=== PATIENT | male | born 1985 | race Caucasian/White ===

== ENCOUNTER 2018-07-27 19:30 | Emergency (ER) | payer BC ==
[2018-07-27] MEDS ORDERED: Iopamidol 755 Mg/ML 100 ML Bottle IV ONE (21:23)
[2018-07-27] MEDS ORDERED: Diatrizoate Meglumine/Diatrizoate Sodium 37% 30 ML Bottle PO SCH (21:30)
[2018-07-27] MEDS ORDERED: Magnesium Citrate Solution 296 ML Bottle PO ONE (22:28)
--- NOTE | 2018-07-28 17:10 | EDM.PDOC ---
ED HPI GENERAL MEDICAL PROBLEM - General Chief Complaint: Abdominal Pain Stated Complaint: STOMACH PAIN Time Seen by Provider: 07/27/18 19:45 Source of Information: Reports: Patient - History of Present Illness INITIAL COMMENTS - FREE TEXT/NARRATIVE: pt c/o lower abd cramping since last night along with multiple small BMs that has bright blood, pt report nausea and one emesis today denies fever or chills or any other associated sx or concerns. ABDOMEN Pain Score (Numeric/FACES): 5 - Related Data Allergies Allergy/AdvReac Type Severity Reaction Status Date / Time Penicillins Allergy Severe Stomach Verified 07/27/18 19:42 Upset aspirin Allergy Nausea and Verified 07/27/18 19:42 Vomiting ERTHOMYCIN Allergy Stomach Uncoded 07/27/18 19:43 Upset Home Meds: Home Meds buPROPion HCl [Wellbutrin Xl] 300 mg PO DAILY 07/27/18 [History] Past Medical History - Past Health History Medical/Surgical History: Denies Medical/Surgical History Psychiatric History: Reports: Anxiety, Depression - Past Surgical History GI Surgical History: Reports: Appendectomy Social & Family History - Tobacco Use Smoking Status *Q: Former Smoker Used Tobacco, but Quit: Yes Month/Year Tobacco Last Used: 2018 - Caffeine Use Caffeine Use: Reports: None - Recreational Drug Use Recreational Drug Use: No - Living Situation & Occupation Living situation: Reports: with Significant Other Occupation: Employed ED ROS GENERAL - Review of Systems Review Of Systems: See Below Constitutional: Denies: Fever, Chills, Night Sweats HEENT: Reports: No Symptoms Respiratory: Reports: No Symptoms Cardiovascular: Reports: No Symptoms GI/Abdominal: Reports: Abdominal Pain, Anorexia, Bloody Stool, Constipation, Nausea : Reports: No Symptoms Musculoskeletal: Reports: No Symptoms Neurological: Reports: No Symptoms ED EXAM, GI/ABD - Physical Exam Exam: See Below Text/Narrative:: pt appear resting comfortably. Exam Limited By: No Limitations General Appearance: Alert Throat/Mouth: Normal Inspection, Normal Oropharynx Head: Atraumatic, Normocephalic Respiratory/Chest: No Respiratory Distress Cardiovascular: Normal Peripheral Pulses GI/Abdominal Exam: Normal Bowel Sounds, Soft, No Mass, Other (tender over lower abd no guarding. ) Rectal (Males) Exam: Bloody Stool, Heme + Stool. No: Black Stool, Hemorrhoids, Perirectal Abscess, Prostate Nodule, Rectal Fissure, Tenderness Back Exam: Normal Inspection Extremities: Normal Inspection Neurological: Alert, Oriented, CN II-XII Intact Psychiatric: Normal Affect Course - Vital Signs Text/Narrative:: labs/ Xray/ CT results were explained to pt. pt has rectal bleeding likely secondary to constipation, pt is discharge with instructions on constipation mng and f/u with PCP in 2 days for re-check. Last Recorded V/S: Last Vital Signs Temp 37.0 C 07/27/18 22:30 Pulse 78 07/27/18 22:30 Resp 16 07/27/18 22:30 BP 139/93 H 07/27/18 22:30 Pulse Ox 100 07/27/18 22:30 - Orders/Labs/Meds Orders: Active Orders 24 hr Category Date Time Status Abdomen 2V AP Flat Upright [CR] Stat Exams 07/27/18 20:18 Taken Abdomen Pelvis w Cont [CT] Stat Exams 07/27/18 21:13 Taken Labs: Laboratory Tests 07/27/18 07/27/18 07/27/18 Range/Units 20:30 20:30 21:35 WBC 15.8 H (4.5-12.0) X10-3/uL RBC 5.47 (4.30-5.75) x10(6)uL Hgb 16.8 (13.5-17.8) g/dL Hct 48.6 (30.0-51.3) % MCV 88.8 (80-96) fL MCH 30.8 (27.7-33.6) pg MCHC 34.7 (32.2-35.4) g/dL RDW 12.2 (11.5-15.5) % Plt Count 305 (125-369) X10(3)uL MPV 7.6 (7.4-10.4) fL Neut % (Auto) 79.1 (46-82) % Lymph % (Auto) 11.7 L (13-37) % [place] % (Auto) 6.6 (4-12) % Eos % (Auto) 1 (1.0-5.0) % Baso % (Auto) 2 (0-2) % Neut # (Auto) 12.6 H (1.6-8.3) # Lymph # (Auto) 1.8 (0.6-5.0) # [place] # (Auto) 1.0 (0.0-1.3) # Eos # (Auto) 0.1 (0.0-0.8) # Baso # (Auto) 0.3 H (0.0-0.2) # Sodium 140 (135-145) mmol/L Potassium 4.0 (3.5-5.3) mmol/L Chloride 99 L (100-110) mmol/L Carbon Dioxide 33 H (21-32) mmol/L BUN 14 (7-18) mg/dL Creatinine 1.3 (0.70-1.30) mg/dL Est Cr Clr Drug Dosing 78.19 mL/min Estimated GFR (MDRD) > 60 (>60) BUN/Creatinine Ratio 10.8 (9-20) Glucose 114 (80-116) mg/dL Calcium 10.0 (8.6-10.2) mg/dL Total Bilirubin 0.5 (0.1-1.3) mg/dL AST 21 (5-25) IU/L ALT 52 H (12-36) U/L Alkaline Phosphatase 142 H (56-112) IU/L Total Protein 8.6 H (6.0-8.0) g/dL Albumin 4.5 (3.5-5.2) g/dL Globulin 4.1 g/dL Albumin/Globulin Ratio 1.1 Urine Color Yellow (YELLOW) Urine Appearance Clear (CLEAR) Urine pH 5.0 (5.0-6.5) Ur Specific [place] 1.025 (1.010-1.025) Urine Protein Negative (NEGATIVE) mg/dL Urine Glucose (UA) Normal (NORMAL) mg/dL Urine Ketones Negative (NEGATIVE) mg/dL Urine Occult Blood Negative (NEGATIVE) Urine Nitrite Negative (NEGATIVE) Urine Bilirubin Small H (NEGATIVE) Urine Urobilinogen Normal (NEGATIVE) mg/dL Ur Leukocyte Esterase Small H (NEGATIVE) Urine RBC 0-5 (0-5) Urine WBC 0-5 (0-5) Ur Squamous Epith Cells Occasional (NS,R,O) Urine Bacteria Rare H (NS) Urine Mucus Few H (NS) Meds: Medications Discontinued Medications Generic Name Dose Route Start Last Admin Trade Name Freq PRN Reason Stop Dose Admin Diatrizoate Meglum/Diatrizoate Sod 30 ml 07/27/18 21:30 07/27/18 21:52 Gastrografin 37% PO 30 ml . DIRECTED ZHANNA Administration Iopamidol 100 ml 07/27/18 21:23 07/27/18 21:52 Isovue-370 (76%) IV 07/27/18 21:24 100 ml . DIRECTED ONE Administration Magnesium Citrate 296 ml 07/27/18 22:28 07/27/18 22:39 Citrate Of Magnesia PO 07/27/18 22:29 296 ml ONETIME ONE Administration Departure - Departure Time of Disposition: 22:35 Disposition: Home, Self-Care 01 Condition: Fair Clinical Impression: Constipation - Discharge Information *PRESCRIPTION DRUG MONITORING PROGRAM REVIEWED*: Not Applicable *COPY OF PRESCRIPTION DRUG MONITORING REPORT IN PATIENT MARY ANN: Not Applicable Instructions: Constipation, Adult Referrals: Nolvia Cox DIESEL SERVICE APPRENTICE [Primary Care Provider] - Forms: ED Department Discharge Care Plan Goals: Follow up with your regular dr. in 2 days - Problem List & Annotations (1) Constipation SNOMED Code(s): 83681340 Code(s): K59.00 - CONSTIPATION, UNSPECIFIED Status: Acute Qualifiers: Constipation type: unspecified constipation type Qualified Code(s): K59.00 - Constipation, unspecified - My Orders Last 24 Hours: My Active Orders 07/27/18 20:18 Abdomen 2V AP Flat Upright [CR] Stat 07/27/18 21:13 Abdomen Pelvis w Cont [CT] Stat - Assessment/Plan Last 24 Hours: My Active Orders 07/27/18 20:18 Abdomen 2V AP Flat Upright [CR] Stat 07/27/18 21:13 Abdomen Pelvis w Cont [CT] Stat
--- NOTE | 2018-07-29 15:47 | CR ---
INDICATION: Abdominal pain. ABDOMEN: Supine and upright views of the abdomen with four images were obtained 07/27/18 - no comparisons. The pattern of gas and feces is nonspecific without evidence of free air or obstruction. No organomegaly, mass lesions, or pathologic calcifications were identified. No gross bony abnormality was seen. IMPRESSION: Nonacute abdomen. MTDD
== END 2018-07-27 22:42 | disposition home or self-care (01) ==
LOC: FB.ED 19:30
DX: K59.00 Constipation, unspecified (principal); F41.9 Anxiety disorder, unspecified; F32.9 Major depressive disorder, single episode, unspecified; Z87.891 Personal history of nicotine dependence; Z88.0 Allergy status to penicillin; Z88.6 Allergy status to analgesic agent; Z88.1 Allergy status to other antibiotic agents; Z79.899 Other long term (current) drug therapy
CPT/HCPCS: 36415; 74019; 74177; 80053; 81001; 82272; 85025; 99284; A9270; Q9963; Q9967